=== PATIENT | male | born 1965 | race Caucasian/White ===

== ENCOUNTER 2018-01-04 06:55 | Day surgery (SDC) | payer BC ==
[~2018-01-04] VITALS: Ht 188 cm; Wt 115.5 kg
[~2018-01-04 06:55] MED LIST: ATOR80 PO; IBUP800 PO; SIMV40 PO
== END 2018-01-04 08:52 | disposition home or self-care (01) ==
LOC: ORSCSDS 06:55
PROVIDERS: Internal Medicine Gastroenterology
PROC: 0DB58ZX Excision of Esophagus, Via Natural or Artificial Opening Endoscopic, Diagnostic (ICD-10-PCS; principal; 2018-01-04 08:15)
PROC: 0DB68ZX Excision of Stomach, Via Natural or Artificial Opening Endoscopic, Diagnostic (ICD-10-PCS; principal; 2018-01-04 08:15)
DX: R13.10 Dysphagia, unspecified (principal); K22.2 Esophageal obstruction; K20.9 Esophagitis, unspecified; K29.00 Acute gastritis without bleeding; K29.80 Duodenitis without bleeding; K44.9 Diaphragmatic hernia without obstruction or gangrene; E78.5 Hyperlipidemia, unspecified; Z79.899 Other long term (current) drug therapy
CPT/HCPCS: J0330; J1980; J2405; J7120

== ENCOUNTER → 2018-08-17 | Outpatient (CLI) | payer BC | END | disposition home or self-care (01) | LOC: LAB 08:47 → LAB SHORT 08:47 → LAB FUT 08-16 08:00 | DX: R05 Cough (principal) | CPT/HCPCS: 87070; 87205 ==

== ENCOUNTER 2019-03-14 06:09 | Day surgery (SDC) | payer BC ==
[~2019-03-14] VITALS: Ht 188 cm; Wt 118.0 kg
[~2019-03-14 06:09] MED LIST changes: +ATOR40TA PO; +Flonase 0.05% N16 GM; +OMEP20ER PO
--- NOTE | 2019-03-14 08:19 | NUR ---
03/14/19 0819 Russel Sandoval AT BEGINNING OF CASE PT O2 SAT DROPPED TO 88. O2 FROM 3L TO 5L. PT O2 SAT STABLE IN LOW TO MID 90S T/O.
== END 2019-03-14 08:43 | disposition home or self-care (01) ==
LOC: ORSCSDS 06:09
PROVIDERS: Internal Medicine Gastroenterology
PROC: 0DB68ZX Excision of Stomach, Via Natural or Artificial Opening Endoscopic, Diagnostic (ICD-10-PCS; principal; 2019-03-14 08:00)
PROC: 0DB58ZX Excision of Esophagus, Via Natural or Artificial Opening Endoscopic, Diagnostic (ICD-10-PCS; principal; 2019-03-14 08:00)
DX: R13.10 Dysphagia, unspecified (principal); K21.0 Gastro-esophageal reflux disease with esophagitis; K22.2 Esophageal obstruction; K29.80 Duodenitis without bleeding; E78.5 Hyperlipidemia, unspecified; Z79.899 Other long term (current) drug therapy
CPT/HCPCS: 88305; 88342; J2405; J2704; J7120

== ENCOUNTER 2019-03-16 06:16 | Day surgery (SDC) | payer BC ==
[~2019-03-16] VITALS: Ht 188 cm; Wt 117.7 kg
--- NOTE | 2019-03-16 06:58 | NUR ---
03/16/19 0658 Rafael Zayas CALL LIGHT WITHIN REACH. FAMILY AT BEDSIDE
== END 2019-03-16 10:06 | disposition home or self-care (01) ==
LOC: ORSCSDS 06:16
PROVIDERS: Otolaryngology
PROC: 09BM0ZZ Excision of Nasal Septum, Open Approach (ICD-10-PCS; principal; 2019-03-16 07:30)
PROC: 09TL0ZZ Resection of Nasal Turbinate, Open Approach (ICD-10-PCS; principal; 2019-03-16 07:30)
DX: J34.2 Deviated nasal septum (principal); J34.3 Hypertrophy of nasal turbinates; I10 Essential (primary) hypertension; E78.5 Hyperlipidemia, unspecified; Z79.899 Other long term (current) drug therapy
CPT/HCPCS: A9270-GY; J1100; J2405; J2704; J2710; J3010; J7120

== ENCOUNTER 2021-03-26 10:52 | Emergency (ER) | payer BC ==
[~2021-03-26] VITALS: Ht 188 cm; Wt 117.9 kg
[2021-03-26] MEDS ORDERED: Flonase 0.05% N16 GM (11:14)
[2021-03-26] MEDS ORDERED: Tessalon Perle100 MG PO (11:14)
[2021-03-26] MEDS ORDERED: Ativan0.5 MG PO (11:14)
[2021-03-26] MEDS ORDERED: AFRIN (11:14)
[2021-03-26] MEDS ORDERED: Ventolin5 MG/1 ML INH (11:30)
[2021-03-26] MEDS ORDERED: AERONEB GO1 EACH MC (11:30)
[2021-03-26] MEDS ORDERED: [UNRECOGNIZED DRUG - OTHER] INH (11:38)
== END 2021-03-26 11:45 | disposition home or self-care (01) ==
LOC: ER 10:52
DX: U07.1 COVID-19 (principal); Z79.899 Other long term (current) drug therapy
CPT/HCPCS: 99284; A9270

== ENCOUNTER 2022-01-02 09:39 | Day surgery (SDC) | payer BC ==
[~2022-01-02] VITALS: Ht 188 cm; Wt 119.2 kg
[~2022-01-02 09:39] MED LIST changes: +AERONEB GO1 EACH MC; +AFRIN; +Ativan0.5 MG PO; +Tessalon Perle100 MG PO; +Ventolin5 MG/1 ML INH; +[UNRECOGNIZED DRUG - OTHER] INH
== END 2022-01-02 13:18 | disposition home or self-care (01) ==
LOC: ORSCSDS 09:39
PROVIDERS: Surgery
PROC: 0DBL8ZX Excision of Transverse Colon, Via Natural or Artificial Opening Endoscopic, Diagnostic (ICD-10-PCS; principal; 2022-01-02 11:15)
DX: Z12.11 Encounter for screening for malignant neoplasm of colon (principal); Z86.010 Personal history of colon polyps; D12.3 Benign neoplasm of transverse colon; K57.30 Diverticulosis of large intestine without perforation or abscess without bleeding; K22.70 Barrett's esophagus without dysplasia; E78.5 Hyperlipidemia, unspecified; K21.9 Gastro-esophageal reflux disease without esophagitis; E66.9 Obesity, unspecified; Z68.35 Body mass index [BMI] 35.0-35.9, adult; Z79.899 Other long term (current) drug therapy
CPT/HCPCS: 88305; J0461; J2405; J2704; J7120

== ENCOUNTER 2022-05-15 10:00 | Inpatient (IN) | payer OTHER, BC ==
[~2022-05-15] VITALS: Ht 188 cm; Wt 127.3 kg
[2022-05-15 10:47] LABS: BASOPHILS ABSOLUTE AUTO 0.04 K/mm3 (0.00-0.23); BASOPHILS PERCENT AUTO 1 % (0-2); EOSINOPHILS ABSOLUTE AUTO 0.07 K/mm3 (0.00-0.68); EOSINOPHILS PERCENT AUTO 1 % (0-6); Hematocrit 40.8 % (37.0-53.0); Hemoglobin 14.4 g/dL (13.5-17.5); IMMATURE GRAN ABSOLUTE AUTO 0.03 K/mm3 (0.00-0.10); IMMATURE GRAN PERCENT AUTO 0 % (0-1); LYMPHOCYTES ABSOLUTE AUTO 1.84 K/mm3 (0.84-5.20); LYMPHOCYTES PERCENT AUTO 25 % (21-46); MONOCYTES ABSOLUTE AUTO 0.62 K/mm3 (0.16-1.47); MONOCYTES PERCENT AUTO 9 % (4-13); Mean Corpuscular HGB 30.5 pg (26.0-34.0); Mean Corpuscular HGB Conc 35.3 g/dL (31.5-36.5); Mean Corpuscular Volume 86 fL (80-100); Mean Platelet Volume 10.2 fL (9.1-12.4); NEUTROPHILS ABSOLUTE AUTO 4.67 K/mm3 (1.96-9.15); NEUTROPHILS PERCENT AUTO 64 % (41-73); Platelet Count 235 K/mm3 (150-400); RDW Coefficient Variation 13.2 % (11.7-14.2); RDW Standard Deviation 41.5 fL (35.1-46.3); Red Blood Cell Count 4.72 M/mm3 (4.30-5.90); White Blood Cell Count 7.27 K/mm3 (4.00-11.30)
[2022-05-15 11:03] LABS: Albumin, Blood 3.7 g/dL (3.4-5.0); Albumin/Globulin Ratio 1.1 (0.8-1.8); Bilirubin, Total 0.6 mg/dL (0.1-1.0); Calcium, Blood 8.9 mg/dL (8.5-10.1); Creatinine, Blood 0.81 mg/dL (0.60-1.20); Globulin, Blood 3.5 g/dL (2.2-4.0); Potassium, Blood 4.4 mmol/L (3.5-5.5); Total Protein, Blood 7.2 g/dL (6.4-8.2)
[2022-05-15 13:33] LABS: International Normalized Ratio 1.02; Prothrombin Time Results 10.7 Sec (9.7-11.5)
--- NOTE | 2022-05-15 17:19 | NUR ---
NOTIFIED OF CRITIAL TROPONIN 1533 @ [address] RIVERA @ 1707 AND 1709, BOTH STATED ANSWERING MACHINE WAS FULL. DR. RIVERA CALLED BACK AT 1715, CRITICAL LAB GIVEN. NO ORDERS AT THIS TIME, AWAITING ORDERS.
--- NOTE | 2022-05-15 18:15 | NUR ---
CONSULT CALLED IN TO DR. QUINTANA. T.O. FOR NPO AT MIDNIGHT FOR PLANNED ANGIO TOMORROW MORNING
--- NOTE | 2022-05-15 18:51 | NUR ---
Assumed care Patient arrived from ER, report received from ANA Bond. Arrived with at bedside. Up ad dina, c/o mild chest tightness but no pain. A/O. Serial trops drawn and has been increasing. Dr. Beach is aware. Heparin initiated, nitro patch placed on R arm, plavix and aspirin given PO, loading dose of heparin also given. Dr. Hernandez consulted. Plan for NPO at midnight for angio tomorrow morning. Order from Dr. Beach to transfer to PCU for NSTEMI and increasing trops. video software engineer Anita notified.
--- NOTE | 2022-05-15 20:08 | NUR ---
ARRIVAL TO PCU PT BROUGHT VIA GURNEY TO PCU. PT A&OX4. C/O 09/04 CHEST/SHOULDER PAIN. HEPARIN INFUSING AT 15UNITS/KG/HR, DOSING VERIFIED WITH CHICO PEREZ.
[2022-05-16 00:21] LABS: BASOPHILS ABSOLUTE AUTO 0.04 K/mm3 (0.00-0.23); BASOPHILS PERCENT AUTO 0 % (0-2); EOSINOPHILS ABSOLUTE AUTO 0.05 K/mm3 (0.00-0.68); EOSINOPHILS PERCENT AUTO 1 % (0-6); Hematocrit 38.2 % (37.0-53.0); Hemoglobin 13.5 g/dL (13.5-17.5); IMMATURE GRAN ABSOLUTE AUTO 0.03 K/mm3 (0.00-0.10); IMMATURE GRAN PERCENT AUTO 0 % (0-1); LYMPHOCYTES ABSOLUTE AUTO 1.97 K/mm3 (0.84-5.20); LYMPHOCYTES PERCENT AUTO 19 % (21-46); MONOCYTES PERCENT AUTO 8 % (4-13); Mean Corpuscular HGB 29.9 pg (26.0-34.0); Mean Corpuscular HGB Conc 35.3 g/dL (31.5-36.5); Mean Corpuscular Volume 85 fL (80-100); Mean Platelet Volume 9.9 fL (9.1-12.4); NEUTROPHILS ABSOLUTE AUTO 7.57 K/mm3 (1.96-9.15); NEUTROPHILS PERCENT AUTO 72 % (41-73); Platelet Count 239 K/mm3 (150-400); RDW Coefficient Variation 13.2 % (11.7-14.2); RDW Standard Deviation 40.9 fL (35.1-46.3); Red Blood Cell Count 4.51 M/mm3 (4.30-5.90); White Blood Cell Count 10.46 K/mm3 (4.00-11.30)
[2022-05-16 00:47] LABS: Anion Gap 4 mmol/L (6-16); Blood Urea Nitrogen 14 mg/dL (8-24); Bun/Creatinine Ratio 20.4 (12.0-20.0); CO2, Blood 27 mmol/L (21-32); Calcium, Blood 8.4 mg/dL (8.5-10.1); Chloride, Blood 104 mmol/L (98-108); Cholesterol 193 mg/dL (50-200); Creatinine, Blood 0.69 mg/dL (0.60-1.20); Glomerular Filtration Rate 109 (60-); Glucose, Blood 113 mg/dL (70-99); Magnesium, Blood 2.2 mg/dL (1.6-2.4); Sodium, Blood 135 mmol/L (136-145); Thyroid Stimulating Hormone 0.431 uIU/mL (0.360-4.800); Triglycerides 144 mg/dL (30-160)
--- NOTE | 2022-05-16 03:24 | NUR ---
05/15/221914 ASSUMED CARE - REPORT FROM DIALLO PEREZ- PT A&O X4- RECEPTION INTERVIEWER AT BESIDE - IN ROOM - PT BEING TRANSFERRED TO PCU- AWAITING ROOM NUMBER- PT LAYING IN BED- HEPARIN INFUSING AT 12 UNITS/KG/HR - TELE IN PLACE 1929 REPORT CALLED TO CHICO PEREZ IN PCU- PT CALLED AND REQUESTED PAIN MEDICATION FOR LEFT ARM/CHEST PAIN- PT REPORTS PAIN STARTING TO INCREASE AGAIN- GAVE FENTANYL 25MCG PER D.O.- 1949 MOVED PT TO PCU ROOM 14 WITH BELONGINGS AND HEPARIN INFUSING
--- NOTE | 2022-05-16 05:40 | NUR ---
SHIFT SUMMERY PT IS ALERT AND ORIENTED X4. NO COMPLAINTS OF CHEST PAIN OVERNIGHT. VS WNL. PT IS ON ROOM AIR. AMBULATORY TO BATHROOM. HEPARIN GTT INFUSING AT 15U/KG. AFEBRILE. NO ACUTE EVENTS OR CHANGES OVERNIGHT.
--- NOTE | 2022-05-16 09:49 | NUR ---
UPDATE PT LEFT PCU UNIT FOR PROCEDURE IN [facility] AT 0949 VIA HOSPITAL BED AND ON RA.
--- NOTE | 2022-05-16 12:46 | NUR ---
1246 PT VSS. NO REPORT OF CHEST PAIN/PRESSURE. RIGHT RADIAL SITE WITHOUT HEMATOMA OR BLEEDING. NO TENDERNESS REPORTED.
--- NOTE | 2022-05-16 16:38 | NUR ---
UPDATE 2ML REMOVED FROM TR BAND AT 1330 SITE FREE OF BLEEDING OR HEMATOMA. 2ML REMOVED FROM TR BAND AT 1340 SITE FREE OF BLEEDING OR HEMOATOMA. 2ML REMOVED AT 1350 FROM TR BAND SITE FREE OF BLEEDING OR HEMATOMA.
--- NOTE | 2022-05-16 16:48 | NUR ---
UPDATE TR BAND REMOVED AT 1630, TEGADERM IN PLACE, NO BLEEDING OR HEMATOMA NOTED. NO TENDERNESS. ARM BOARD IN PLACE. PT INSTRUCTED TO WATCH FOR BLEEDING AND NOT TO USE RIGHT ARM
--- NOTE | 2022-05-16 17:55 | NUR ---
SHIFT SUMMARY PT A/OX4 AND COOPERATIVE OF CARE. VSS THROUGHOUT SHIFT WITH 02 SATS IN THE HIGH 90'S ON RA. PT HAD ANGIO DONE TODAY, 2 STENTS PLACED, SEE PROCEDURE NOTES, STENT CARDS IN CHART. RIGHT RADIAL SITE C/D/I, TEGADERM IN PLACE, ARM BOARD IN PLACE. NO REPORT OF CHEST PAIN/PRESSURE. NO REPORT OF SOB/DYSPNEA. FAMILY AT BEDSIDE FOR ENTIRE SHIFT, UPDATED. PT INDEPENDENT IN ROOM.HEP GTT STOPPED FOR PROCEDURE, ORDER DC'D AFTER PROCEDURE.
[2022-05-16] MEDS ORDERED: ASPI81CH PO (18:02)
[2022-05-16] MEDS ORDERED: METO25ER PO (18:03)
[2022-05-16] MEDS ORDERED: CLOP75 PO (18:03)
--- NOTE | 2022-05-16 18:58 | NUR ---
SPOKE WITH PT AT 1855, PT INFORMED THIS RN THAT SHE RECIEVED STENT CARDS FROM PEPE PEREZ. TOOK STENT CARDS WITH HER WHEN SHE LEFT.
--- NOTE | 2022-05-17 06:43 | NUR ---
SHIFT SUMMARY: THIS AUTHOR ASSUMED CARE OF PATIENT FROM . PATIENT HAD UNEVENTFUL NIGHT. HE IS INDEPENDENT WITH ADLS. PATIENT SLEPT THROUGHOUT THE ENTIRE SHIFT. AUTHOR DEFERRED VITALS CHECKS AT 0000 AND 0400 DUE TO PATIENT STATUS AND DISPOSITION. MONITORED VIA CARDIAC TELEMETRY WITH NO EVENTS NOTED. TENTATIVE PLAN FOR DISCHARGE TODAY.
--- NOTE | 2022-05-17 11:38 | NUR ---
DISCHARGE DR DISLA CAME BY AND GAVE OK FOR PT TO DISCHARGE HOME. PT'S IN THE ROOM WITH PT WHEN MD ROUNDED AND GAVE DISCHARGE INSTRUCTIONS. PT'S MEDICATIONS WERE CALLED IN YESTERDAY AND PT'S PICKED THEM UP. ALL MEDS REVIEWED WITH PT AND HIS . DISCHARGE INSTRUCTIONS REVIEWED. ALL QUESTIONS ANSWERED. ALL BELONGINGS DC'D WITH PT.
== END 2022-05-17 11:45 | disposition home or self-care (01) | DRG 247 ==
LOC: ER 10:00 → MEDS 10:01 → PCU 13:38 → MEDS 16:13 → PCU 19:59
PROVIDERS: Emergency Medicine; ADMIT Student in an Organized Health Care Education/Training Program
PROC: 4A023N7 Measurement of Cardiac Sampling and Pressure, Left Heart, Percutaneous Approach (ICD-10-PCS; principal; 2022-05-16)
PROC: 027034Z Dilation of Coronary Artery, One Artery with Drug-eluting Intraluminal Device, Percutaneous Approach (ICD-10-PCS; 2022-05-16)
PROC: B2111ZZ Fluoroscopy of Multiple Coronary Arteries using Low Osmolar Contrast (ICD-10-PCS; 2022-05-16)
DX: I21.4 Non-ST elevation (NSTEMI) myocardial infarction (principal); E78.00 Pure hypercholesterolemia, unspecified; E78.5 Hyperlipidemia, unspecified; I25.10 Atherosclerotic heart disease of native coronary artery without angina pectoris; E66.9 Obesity, unspecified; Z98.890 Other specified postprocedural states; Z79.82 Long term (current) use of aspirin; Z79.899 Other long term (current) drug therapy; Z95.5 Presence of coronary angioplasty implant and graft; Z68.34 Body mass index [BMI] 34.0-34.9, adult
CPT/HCPCS: 36415; 71045; 71275; 76937; 80048; 80053; 82465; 83036; 83735; 84443; 84478; 84484; 85025; 85347; 85379; 85520; 85610; 85730; 93005; 93010; 93306; 93458; 96374-59; 96375; 96375-59; 99152; 99153; 99285-25; A9270; C1725; C1769; C1874; C1887; C1894; C9600; C9601; G0378; J0461; J1644; J1885; J2250; J2270; J3010; J7030; J7040; Q9967

== ENCOUNTER 2022-05-30 20:11 | Emergency (ER) | payer OTHER, BC ==
[~2022-05-30] VITALS: Ht 188 cm; Wt 115.7 kg
[~2022-05-30 20:11] MED LIST changes: +ASPI81CH PO; +CLOP75 PO; +METO25ER PO
[2022-05-30 21:13] LABS: BASOPHILS ABSOLUTE AUTO 0.04 K/mm3 (0.00-0.23); BASOPHILS PERCENT AUTO 1 % (0-2); EOSINOPHILS PERCENT AUTO 1 % (0-6); Hematocrit 40.1 % (37.0-53.0); Hemoglobin 14.1 g/dL (13.5-17.5); IMMATURE GRAN ABSOLUTE AUTO 0.01 K/mm3 (0.00-0.10); IMMATURE GRAN PERCENT AUTO 0 % (0-1); LYMPHOCYTES ABSOLUTE AUTO 1.98 K/mm3 (0.84-5.20); LYMPHOCYTES PERCENT AUTO 28 % (21-46); MONOCYTES ABSOLUTE AUTO 0.71 K/mm3 (0.16-1.47); MONOCYTES PERCENT AUTO 10 % (4-13); Mean Corpuscular HGB 30.5 pg (26.0-34.0); Mean Corpuscular HGB Conc 35.2 g/dL (31.5-36.5); Mean Corpuscular Volume 87 fL (80-100); Mean Platelet Volume 10.8 fL (9.1-12.4); NEUTROPHILS ABSOLUTE AUTO 4.17 K/mm3 (1.96-9.15); NEUTROPHILS PERCENT AUTO 60 % (41-73); Platelet Count 241 K/mm3 (150-400); RDW Coefficient Variation 13.2 % (11.7-14.2); RDW Standard Deviation 41.1 fL (35.1-46.3); Red Blood Cell Count 4.63 M/mm3 (4.30-5.90); White Blood Cell Count 7.01 K/mm3 (4.00-11.30)
[2022-05-30 21:24] LABS: Albumin, Blood 3.6 g/dL (3.4-5.0); Albumin/Globulin Ratio 0.9 (0.8-1.8); Bilirubin, Total 0.3 mg/dL (0.1-1.0); Bun/Creatinine Ratio 39.7 (12.0-20.0); Calcium, Blood 8.6 mg/dL (8.5-10.1); Creatinine, Blood 0.71 mg/dL (0.60-1.20); Globulin, Blood 3.8 g/dL (2.2-4.0); Potassium, Blood 5.2 mmol/L (3.5-5.5); Total Protein, Blood 7.4 g/dL (6.4-8.2)
== END 2022-05-30 23:55 | disposition home or self-care (01) ==
LOC: ER 20:11
PROVIDERS: Physician Assistant
DX: M25.512 Pain in left shoulder (principal); I25.2 Old myocardial infarction; Z79.82 Long term (current) use of aspirin; Z79.899 Other long term (current) drug therapy; Z95.5 Presence of coronary angioplasty implant and graft
CPT/HCPCS: 36415; 71046; 80053; 83690; 83880; 84484; 85025; 93005; 93010; A9270